=== PATIENT | female | born 1975 | race African-American/Black ===

== ENCOUNTER 2016-09-11 01:49 | Emergency (ER) | payer OTHER ==
[~2016-09-11] VITALS: Ht 177.8 cm; Wt 85.7 kg
[~2016-09-11 01:49] MED LIST: AMBIEN5 MG PO; ASCORBIC ACID500 M3 PO; BENZOYL PEROXID60 G4 TP; CALCIUM 600 +1 EAC2 PO; CEROVITE ADVAN1 EACH PO; CLONAZEPAM1 MG PO; CLOTRIMAZOLE15 GM TP; COGENTIN1 MG PO; DAIRY RELIE3000 UNIT PO; DEPAKOTE250 MG PO; DEPAKOTE500 MG PO; DIVALPROEX SOD250 MG PO; DOCUSATE SODIU100 MG PO; FERROUS SULFAT325 MG PO; FLUPHENAZI PO; GERI-LANTA LIQ355 ML PO; GLUCAGEN1 MG IM; GLUCAGON1 MG IM; GLUCOSE4 GM PO; GOLD BOND MEDI113 GM TP; KETOCONAZOLE120 ML TP; LANSOPRAZOLE30 MG PO; LANTUS 10100 UNITS/ SC; LANTUS 3 M100 UNITS1 SC; LEVOTHYROXINE25 MCG PO; LEVOTHYROXINE75 MCG PO; LISINOPRIL2.5 MG PO; LITHIUM CARBON150 MG PO; LITHIUM CARBON300 M1 PO; LORAZEPAM2 MG PO; MELATONIN3 MG PO; METFORMIN HCL1000 MG PO; METFORMIN HCL500 MG PO; MI ACID PO; MINERIN CREME454 GM TP; NAPROXEN500 M1 PO; NOVOLOG 10100 UNITS/ SC; OYST-CAL-500500 MG PO; PREVIFEM1 EACH PO; PROLIXIN10 MG PO; PROTONIX40 MG PO; QUETIAPINE FUM200 MG PO; QUETIAPINE FUM300 MG PO; RISPERDAL2 MG PO; RISPERIDONE4 MG PO; SALINE NASAL SP45 ML BOTH NARES; SIMVASTATIN10 MG PO; TUMS500 MG PO; TYLENOL REGULA325 MG PO; UREA198.6 GM TP; VITAMIN B12-FO1 EACH PO; [UNRECOGNIZED DRUG - OTHER] PO
[2016-09-11 02:24] VITALS: BP 116/86
== END 2016-09-11 02:25 ==
LOC: EME 01:49
DX: M79.89 Other specified soft tissue disorders (principal); L53.9 Erythematous condition, unspecified; W49.04XA Ring or other jewelry causing external constriction, initial encounter; E11.9 Type 2 diabetes mellitus without complications
CPT/HCPCS: 99281; 99283

== ENCOUNTER 2016-12-11 18:10 | Inpatient (IN) | payer OTHER ==
[~2016-12-11] VITALS: Ht 170.2 cm; Wt 87.9 kg
[2016-12-11 18:59] LABS: ADD MIUA? NO; BILIRUBIN NEGATIVE; BLOOD NEGATIVE; COLOR STRAW ((YELLOW)); GLUCOSE (STRIP) NEGATIVE; KETONES NEGATIVE; LEUKOCYTES NEGATIVE; NITRITE NEGATIVE; PROTEIN (STRIP) NEGATIVE; SPECIFIC GRAVITY 1.004 (1.000-1.030); UCUL ADDED? NO; UROBILINOGEN 0.2 MG/DL (0.2-1.0)
[2016-12-11 19:24] LABS: HEMATOCRIT 35.9 % (36.0-46.0); MCH 32.4 PG (29.0-34.0); MCV 95.2 FL (83-99); MEAN PLAT.VOLUME 10.6 uM^3 (9.5-12.4); PLATELET COUNT 245 K/uL (156-360); RBC DIS.WIDTH-CV 12.8 % (11.8-14.6); RBC DIS.WIDTH-SD 44.9 % (39-53); RED BLOOD COUNT 3.77 M/uL (3.80-5.20); WHITE BLOOD COUNT 13.3 K/uL (4.1-10.2)
[2016-12-11 19:33] LABS: CHLORIDE 104 mEq/L (99-109); POTASSIUM 3.9 mEq/L (3.7-5.4); SODIUM 136 mEq/L (136-147)
[2016-12-11 19:35] LABS: GLUCOSE 184 mg/dL (70-99)
[2016-12-11 19:36] LABS: ANION GAP 7 MEQ/L (2-14)
[2016-12-11 19:37] LABS: TOTAL BILIRUBIN 0.7 mg/dL (0.0-1.0)
[2016-12-11 19:38] LABS: ALKALINE PHOSPHATASE 47 IU/L (3-129)
[2016-12-11 19:39] LABS: GFR ESTIMATE (CALCULATED) > 59 mL/min/
[2016-12-11 19:40] LABS: UREA NITROGEN (BUN) 9 mg/dL (9-23)
[2016-12-11 19:42] LABS: LIPASE 38 U/L (1.0-51.0)
[2016-12-11] MEDS ORDERED: MOTRIN600 MG PO (22:50)
[2016-12-11] MEDS ORDERED: ATIVAN1 MG PO (22:51)
[2016-12-11] MEDS ORDERED: RISPERDAL3 MG PO (22:52)
[2016-12-11 22:53] LABS: ERTH.SED.RATE 21 MM/HR (0-20)
[2016-12-11] MEDS ORDERED: MYRBETRIQ50 MG PO (22:55)
[2016-12-11] MEDS ORDERED: COL-RITE100 M1 PO (22:56)
[2016-12-11] MEDS ORDERED: LITHOBID300 MG PO (22:57)
[2016-12-11 23:07] LABS: C-REACTIVE PROTEIN 22.5 MG/L (0-10)
[2016-12-11 23:44] VITALS: BP 116/55
[2016-12-12 03:31] VITALS: BP 113/63
[2016-12-12 05:56] LABS: ANION GAP 7 MEQ/L (2-14); CHLORIDE 110 MEQ/L (99-109); GFR ESTIMATE (CALCULATED) > 59 mL/min/; GLUCOSE 257 mg/dL (70-99); POTASSIUM 4.5 MEQ/L (3.7-5.4); SAMPLE HEMOLYSIS CHECK 0; SAMPLE ICTERIC CHECK 0; SAMPLE LIPEMIA CHECK 0; SODIUM 138 MEQ/L (136-147); UREA NITROGEN (BUN) 11 mg/dL (9-23)
[2016-12-12 06:31] LABS: HEMATOCRIT 31.2 % (36.0-46.0); MCH 32.1 PG (29.0-34.0); MCHC 32.7 G/DL (30.0-36.0); MCV 98.1 FL (83-99); MEAN PLAT.VOLUME 10.3 uM^3 (9.5-12.4); PLATELET COUNT 190 K/uL (156-360); RBC DIS.WIDTH-CV 13.1 % (11.8-14.6); RBC DIS.WIDTH-SD 47.2 % (39-53); RED BLOOD COUNT 3.18 M/uL (3.80-5.20); WHITE BLOOD COUNT 9.5 K/uL (4.1-10.2)
[2016-12-12 07:57] VITALS: BP 123/68
[2016-12-12 08:02] LABS: POINT-OF-CARE METER ID UU13113700
[2016-12-12 10:55] VITALS: BP 132/72
[2016-12-12 11:56] LABS: POINT-OF-CARE METER ID UU13113831
[2016-12-12 15:17] VITALS: BP 143/68
[2016-12-12 15:49] LABS: POINT-OF-CARE METER ID UU13113725
[2016-12-12 20:16] VITALS: BP 137/74
[2016-12-12 20:42] VITALS: BP 137/74
[2016-12-13 00:50] VITALS: BP 133/65
[2016-12-13 07:06] LABS: POINT-OF-CARE METER ID UU13113725
[2016-12-13 07:10] VITALS: BP 132/69
[2016-12-13 11:04] VITALS: BP 152/81
[2016-12-13 14:51] VITALS: BP 169/79
[2016-12-13 20:54] VITALS: BP 136/61
[2016-12-13 21:58] LABS: POINT-OF-CARE METER ID UU13113725
[2016-12-14 01:39] VITALS: BP 126/62
[2016-12-14 06:33] LABS: POINT-OF-CARE METER ID UU13113725
[2016-12-14 07:04] LABS: EOSINOPHIL (%) 1.8 % (0-5); EOSINOPHIL COUNT 0.2 K/uL (0-0.3); HEMATOCRIT 30.2 % (36.0-46.0); IMMATURE GRANULOCYTE (%) 0.4 % (0.0-0.7); INSTRUMENT ABS NEUTROPHIL CT 5.1 K/uL; LYMPHOCYTE COUNT 2.7 K/uL (1.0-2.8); MCH 32.4 PG (29.0-34.0); MCHC 33.8 G/DL (30.0-36.0); MCV 95.9 FL (83-99); MEAN PLAT.VOLUME 10.6 uM^3 (9.5-12.4); MONOCYTE (%) 15.3 % (3-12); MONOCYTE COUNT 1.4 K/uL (0-0.8); NEUTROPHIL COUNT 5.1 K/uL (1.8-6.4); PLATELET COUNT 185 K/uL (156-360); RBC DIS.WIDTH-CV 13.2 % (11.8-14.6); RBC DIS.WIDTH-SD 46.4 % (39-53); RED BLOOD COUNT 3.15 M/uL (3.80-5.20); WHITE BLOOD COUNT 9.4 K/uL (4.1-10.2)
[2016-12-14 07:23] LABS: ANION GAP 8 MEQ/L (2-14); CHLORIDE 107 MEQ/L (99-109); GFR ESTIMATE (CALCULATED) > 59 mL/min/; GLUCOSE 171 mg/dL (70-99); POTASSIUM 3.7 MEQ/L (3.7-5.4); SAMPLE HEMOLYSIS CHECK 0; SAMPLE ICTERIC CHECK 0; SAMPLE LIPEMIA CHECK 0; SODIUM 140 MEQ/L (136-147); UREA NITROGEN (BUN) 6 mg/dL (9-23)
[2016-12-14 07:24] VITALS: BP 132/72
[2016-12-14 11:35] VITALS: BP 133/79
[2016-12-14 15:00] VITALS: BP 143/82
[2016-12-14 20:45] VITALS: BP 162/72
[2016-12-15] VITALS: BP 124/61
[2016-12-15 02:32] LABS: POINT-OF-CARE METER ID UU13113725
[2016-12-15 03:40] VITALS: BP 137/65
[2016-12-15 05:44] LABS: POINT-OF-CARE METER ID UU13113725
[2016-12-15 07:45] VITALS: BP 124/67
[2016-12-15 12:04] VITALS: BP 92/50
[2016-12-15 15:38] VITALS: BP 126/81
[2016-12-15 15:54] LABS: POINT-OF-CARE METER ID UU13113725
[2016-12-15 21:00] VITALS: BP 129/73
[2016-12-16 05:33] VITALS: BP 132/70
[2016-12-16 06:46] LABS: POINT-OF-CARE METER ID UU13113725
[2016-12-16 07:10] VITALS: BP 109/55
[2016-12-16 09:52] VITALS: BP 108/56
[2016-12-16 11:53] LABS: POINT-OF-CARE METER ID UU13113725
[2016-12-16 21:30] LABS: POINT-OF-CARE METER ID UU13113725
[2016-12-16 23:23] VITALS: BP 120/76
[2016-12-17 05:48] VITALS: BP 103/53
[2016-12-17 06:40] LABS: HEMATOCRIT 29.9 % (36.0-46.0); MCH 33.1 PG (29.0-34.0); MCHC 34.4 G/DL (30.0-36.0); MCV 96.1 FL (83-99); RED BLOOD COUNT 3.11 M/uL (3.80-5.20); WHITE BLOOD COUNT 7.5 K/uL (4.1-10.2)
[2016-12-17 07:09] LABS: PLATELET COUNT 264 K/uL (156-360)
[2016-12-17 07:17] VITALS: BP 114/57
[2016-12-17 13:41] VITALS: BP 121/6; BP 121/60
[2016-12-17 16:09] VITALS: BP 120/61
[2016-12-17 20:12] VITALS: BP 110/61
[2016-12-17 23:24] VITALS: BP 115/68
[2016-12-18 03:28] VITALS: BP 112/65
[2016-12-18 07:23] VITALS: BP 114/59
[2016-12-18 11:29] VITALS: BP 133/74
[2016-12-18 11:30] VITALS: BP 133/74
[2016-12-18 16:30] VITALS: BP 127/68
[2016-12-18] MEDS ORDERED: AMOX TR-K CLV1 EAC3 PO (18:50)
[2016-12-18] MEDS ORDERED: ZITHROMAX250 MG PO (18:52)
[2016-12-18 19:56] VITALS: BP 140/83
== END 2016-12-18 20:30 | DRG 195 ==
LOC: EME 18:10 → EDOF 21:46 → ENRESERV 21:49 → 5WEST 23:16 → 5EAST 12-12 07:56 → 5WEST 12-12 07:56 → ENRESERV 12-12 07:58 → 5EAST 12-12 14:49
PROVIDERS: Hospitalist; Internal Medicine; Physician Assistant
DX: J18.9 Pneumonia, unspecified organism (principal); F25.9 Schizoaffective disorder, unspecified; E11.9 Type 2 diabetes mellitus without complications; F71 Moderate intellectual disabilities; D50.0 Iron deficiency anemia secondary to blood loss (chronic); I10 Essential (primary) hypertension; K21.9 Gastro-esophageal reflux disease without esophagitis; R32 Unspecified urinary incontinence; E66.9 Obesity, unspecified; Z68.30 Body mass index [BMI] 30.0-30.9, adult; N93.8 Other specified abnormal uterine and vaginal bleeding; N32.81 Overactive bladder; R56.9 Unspecified convulsions; M43.6 Torticollis; Z79.4 Long term (current) use of insulin; Z79.84 Long term (current) use of oral hypoglycemic drugs
CPT/HCPCS: 71020; 74177; 80048; 80053; 81003; 82948; 83605; 83690; 85025; 85027; 85651; 86140; 87040; 87651 90; 93306; 99281; 99285; G0378; J0456; J1650; J1815; J1885; J2543; J3370; J7030; J7050; J7120